=== PATIENT | female | born 1965 | race Caucasian/White ===

== ENCOUNTER 2021-11-09 13:46 | Emergency (ER) | payer OTHER ==
--- OUTSIDE RECORDS SUMMARY | 2021-11-09 13:49 | XMS REPORT | Continuity of Care Document ---
:1965 Author Organization [facility] t Address [address] [place] [address] Care Team Providers Name Role Phone MAGED MAHONEY Attending Clinician Unavailable OJ EDWARDS Attending Clinician Unavailable Sarita GAR Attending Clinician MAGED MAHONEY Admitting Clinician Unavailable OJ EDWARDS Admitting Clinician Unavailable Payers Payer Name Policy Type Policy Number Effective Date Expiration Date S ource GENERIC COMMERCIAL [id number] 2020 00:00:00 Problems Condition Condition Condition Status Onset Resolution Last Treating Co mments Source Name Details Category Date Date Treatment Clinician Date No known No known Disease [facility] active active [facility] problems problems of Medicin e Allergies, Adverse Reactions, Alerts Allergy Allergy Status Severity Reaction(s) Onset Inactive Treating Comm ents Source Name Type Date Date Clinician Levoflox Propensi Active Other (See Ba ylor acin ty to Comments) 10-29 College adverse 00:00: of reaction 00 Medicin s to e drug LEVOFLOX Allergy Active Med Other [facility] Ceftriax Propensi Active Anaphylaxis 2019-10 B aylor one ty to College adverse 00:00: of reaction 00 Medicin s to e drug Ciproflo Propensi Active Other (See 2019-10 [place] Ba y[facility] xacin ty to Comments) rupture Colleg e adverse 00:00: of reaction 00 Medicin s to e drug CEFTRIAX Allergy Active High Anaphylaxis 2019-[address] [facility] CIPROFLO Allergy Active Med Other 2019-[address] [facility] [address] [facility]ACIN [facility] NO KNOWN Allergy Active [facility] Social History Social Habit Start Date Stop Date Quantity Comments Source History [facility] Alcohol Std Drinks of Med icine History [facility] ge Alcohol Binge of Medicine Exposure to Not sure [facility] Yosef larry SARS-CoV-2 (event) of Med icine Alcohol intake 2021-03-12 2021-03-12 Lifetime [facility] Col lege 00:00:00 00:00:00 non-drinker of Medicine (finding) Tobacco use and 2020-12-28 2020-12-28 Never used [facility] Co llege exposure 00:00:00 00:00:00 of Medicine History [facility] 2020-12-28 2020-12-[address] [facility] ge Alcohol Frequency 00:00:00 00:00:00 of Medi cine Sex [birth year] [facility] llege 00:00:00 00:00:00 of Medicine Smoking Status Start Date Stop Date Source Never smoker [facility] o f Medicine Medications Ordered Filled Start Stop Current Ordering Indication Dosage Frequency Signature Comments Components Source Medication Medication Date Date Medication? Clinician (SIG) Name Name Lactobacill Yes Take by Iglesia delgado 03-12 mouth [facility] (ACIDOPHILU 08:10: daily. of S OR) 38 Medicin e nitrofurant Yes 100mg Take 1 Putnam abdias oin, 5-15 capsule by [facility] macrocrysta 00:00: mouth two o f l-monohydra 00 times Medicin te, daily. e (MACROBID) 100 MG capsule nitrofurant Yes 100mg Take 1 Putnam abdias oin 5-15 capsule by [facility] (MACRODANTI 00:00: mouth of N) 100 MG 00 nightly. Medici n capsule Start this e after your 2 weeks of twice a day macrobid. sodium 2020- Use as [facility] chloride 01-26 directed Colleg e 0.9 % 00:00: 00:00 for of injection 00 :00 reconstitu Medi melani tion of e medication . allopurinol Yes 300mg Take 1 Putnam abdias (ZYLOPRIM) 3-15 Tablet by [facility] 300 MG 00:00: mouth of tablet 00 daily. Medicin e chlorthalid Yes 25mg Take 1 Bayl or one 3-15 Tablet by [facility] (HYGROTEN) 00:00: mouth of 25 MG 00 daily. Medicin tablet e Potassium Yes 1{tbl} Take 1 Bayl or Citrate 10 3-15 Tablet by [facility]o ege MEQ (1080 00:00: mouth two of MG) TBCR 00 times Medicin daily. e losartan Yes 100mg Take 100 Bayl or (COZAAR) 8-28 mg by [facility] 100 MG 00:00: mouth of tablet 00 daily. Medicin e Immunizations Ordered Immunization Filled Immunization Date Status Commen ts Source Name Name Viri SARS-CoV-2 2021-01-12 Completed [facility] Vaccination 00:00:00 of Medicine Viri SARS-CoV-2 2020-12-14 Completed [facility] Vaccination 00:00:00 of Medicine Vital Signs Vital Name Observation Time Observation Value Comments Source HEIGHT 2020-11-09 10:00:00 170.2 cm WEIGHT 2020-11-09 10:00:00 128.459 kg HEIGHT 2020-10-29 13:51:00 170.2 cm WEIGHT 2020-10-29 13:51:00 122.018 kg HEIGHT 2020-10-14 23:00:00 170.2 cm WEIGHT 2020-10-14 23:00:00 122.018 kg HEIGHT 2020-11-09 10:00:00 170.2 cm WEIGHT 2020-11-09 10:00:00 128.459 kg HEIGHT 2020-10-29 13:51:00 170.2 cm WEIGHT 2020-10-29 13:51:00 122.018 kg Systolic blood 2021-03-12 13:07:00 143 mm[Hg] [facility] pressure Medicine Diastolic blood 2021-03-12 13:07:00 86 mm[Hg] [facility] pressure Medicine Heart rate 2021-03-12 13:07:00 74 /min [facility] Body temperature 2021-03-12 13:07:00 36.67 Fior [facility] Respiratory rate 2021-03-12 13:07:00 18 /min [facility] Body height 2021-03-12 13:07:00 167.6 cm [facility] Body weight 2021-03-12 13:07:00 127.733 kg [facility] BMI 2021-03-12 13:07:00 45.45 kg/m2 [facility] Oxygen saturation in 2021-03-12 13:07:00 98 /min [facility] Arterial blood by Medicine Pulse oximetry HEIGHT 2020-10-14 23:00:00 170.2 cm WEIGHT 2020-10-14 23:00:00 122.018 kg Procedures This patient has no known procedures. Plan of Care Planned Activity Planned Date Details Comments Source Future Scheduled 2021-03-12 Screening for malignant [facility] Test 12:13:34 neoplasm of colon of Medicin e (procedure) [code = 194110699] Future Scheduled 2021-03-12 Screening for malignant [facility] Test 12:13:34 neoplasm of breast of Medici ne (procedure) [code = 745264160] Future Scheduled 2021-03-12 BMI FOLLOW UP PLAN [facility] Test 12:13:34 [code = BMI FOLLOW UP of Med icine PLAN] Future Scheduled 2021-03-12 Hepatitis C screening [facility] Test 12:13:34 (procedure) [code = of Medic ine 768178577] Future Scheduled 2021-03-12 Human immunodeficiency B [facility] Test 12:13:34 virus screening of Medicine (procedure) [code = 757099280] Future Scheduled 2021-03-12 Screening for malignant [facility] Test 12:13:34 neoplasm of cervix of Medici ne (procedure) [code = 203838779] Future Scheduled 2021-03-12 ZOSTER VACCINE (1 of 2) [facility] Test 12:13:34 [code = ZOSTER VACCINE of Me dicine (1 of 2)] Future Scheduled 2021-03-12 FLU VACCINE > 6 MONTHS B [facility] Test 12:13:34 [code = FLU VACCINE > 6 of M edicine MONTHS] Future Scheduled 2021-03-12 TETANUS SHOT (ADULT) [facility] Test 12:13:34 [code = TETANUS SHOT of Medi cine (ADULT)] Future Scheduled 2021-03-12 URINALYSIS AUTO W/SCOPE 1 Occurrences [facility] Test 08:53:08 [code = 44143-7] starting of Medicine 03/12/2021 until 09/12/2021 Future Scheduled 2021-03-12 CULTURE, 1 Occurrences [facility] Col lege Test 08:53:08 URINE/SENSITIVITY ON starting of Medi cine ALL [code = 51009-9] 03/12/2021 until 09/12/2021 Encounters Start End Encounter Admission Attending Care Care Encounter Source Date/Time Date/Time Type Type Clinicians Facility Department ID 2021-07-23 Outpatient DENZEL [facility] Surgery [id number] [facility] 22:18:52 YAIMA 2021-07-23 Inpatient ER GRACE [facility] General Med [id number] [facility] 21:35:25 ISAIAH 2021-03-12 2021-03-12 Office GABRIEL Stein [id number] [facility] 07:34:52 08:34:52 Visit Opatti AMBULATOR [id number] College Y [id number] of [id number] [facility] melani 355 e 2020-10-29 2020-10-29 Outpatient [facility] [id number] [facility] 00:00:00 00:00:00 Results Test Description Test Time Test Comments Results Result Sour e Comments FL, FLUORO, 2020-11-09 Reason for NON-SPECIFIC, UP 14:10:00 exam:->right TO 1 HOUR retrograde; right [facility] - ureteroscopy; [facility] right stent TINA DUMONT placement : 1965 Sex: F *Fluoroscopic unit utilized for a procedure performed in the OR. No interpretation was requested. Refer to the operative report for findings. Refer to PACS for patient radiation dose information. PHOSPHORUS 2020-10-16 06:12:00 Test Item Value Reference Range Interpretation Comme nts PHOSPHORUS (BEAKER) (test code = 604) 3.0 mg/dL 2.3-4.7 Insurance Associate NIKKO DENG WBASIC METABOLIC [id number] 06:12:00 Test Item Value Reference Range Interpretation Comments SODIUM (BEAKER) 141 meq/L 136-145 (test code = 381) POTASSIUM (BEAKER) 4.2 meq/L 3.5-5.1 (test code = 379) CHLORIDE (BEAKER) 109 meq/L 98-107 H (test code = 382) CO2 (BEAKER) (test 24 meq/L 22-29 code = 355) BLOOD UREA NITROGEN 10 mg/dL 7-21 (BEAKER) (test code = 354) CREATININE (BEAKER) 0.77 mg/dL 0.57-1.25 (test code = 358) GLUCOSE RANDOM 130 mg/dL 70-105 H (BEAKER) (test code = 652) CALCIUM (BEAKER) 9.4 mg/dL 8.4-10.2 (test code = 697) EGFR (BEAKER) (test 78 mL/min/1.73 ESTIMA KEVIN GFR IS code = 1092) sq m NOT ACCURATE CREATININE CLEARANCE IN PREDICTING GLOMERULAR FILTRATION RATE . ESTIMATED GFR I S NOT APPLICABLE FOR DIALYSIS PATIEN TS. Insurance Associate NIKKO DENG [id number] 06:12:00 Test Item Value Reference Range Interpretation Comments MAGNESIUM (BEAKER) (test code = 2.0 mg/dL 1.6-2.6 627) Insurance Associate ID Jamie DENG WPOCT-GLUCOSE [id number] 06:06:00 Test Item Value Reference Range Interpretation Comments POC-GLUCOSE METER 126 mg/dL 70-110 H : TESTED A T [facility] 6720 (BEAKER) (test code = [place], 1538) [id number]: Insurance Associate/Techni ron ID = [id number] for URMILA MORALES CBC (HEMOGRAM ONLY)2020-10-16 05:42:00 Test Item Value Reference Range Interpretation Comments WHITE BLOOD CELL COUNT (BEAKER) 9.8 K/ L 3.5-10.5 (test code = 775) RED BLOOD CELL COUNT (BEAKER) 4.31 M/ L 3.93-5.22 (test code = 761) HEMOGLOBIN (BEAKER) (test code = 12.2 GM/DL 11.2-15.7 410) HEMATOCRIT (BEAKER) (test code = 37.9 % 34.1-44.9 411) MEAN CORPUSCULAR VOLUME (BEAKER) 87.9 fL 79.4-94.8 (test code = 753) MEAN CORPUSCULAR HEMOGLOBIN 28.3 pg 25.6-32.2 (BEAKER) (test code = 751) MEAN CORPUSCULAR HEMOGLOBIN CONC 32.2 GM/DL 32.2-35.5 (BEAKER) (test code = 752) RED CELL DISTRIBUTION WIDTH 13.1 % 11.7-14.4 (BEAKER) (test code = 412) PLATELET COUNT (BEAKER) (test 226 K/CU MM 150-450 code = 756) MEAN PLATELET VOLUME (BEAKER) 8.4 fL 9.4-12.3 L (test code = 754) NUCLEATED RED BLOOD CELLS 0 /100 WBC 0-0 (BEAKER) (test code = 413) CT, [id number] 04:34:00Unlisted Reason for Exam - Click Yes and Enter Reason Below->NoPlease specify:->[facility]al Stone [facility] 1965 Sex: FFINAL REPORT CLINICAL HISTORY: Flank pain FINDINGS: Multiple axial im ages of the abdomen and pelvis were performed without intravenous contrast. Oral contrast was not given. This exam was performed according to our departmental dose-optimization program, which includes automated exposure control, adjustment of the mA and/or kV according to patient size and/or use of the iterative reconstruction technique. Comparison:None. Lower chest: Bilateral dependent atelectasis. No pleural effusion or pneumothorax. Atherosclerotic coronary artery calcification. Liver: Hepatic steatosis Gallbladder and biliary tree: No significant findings. Spleen: Mild splenomegaly, measuring 14.2 cm in maximum axial dimension. Adrenal Glands: There is a mixed density left adrenal nodule including regions of macroscopic fat measuring 4.4 cm, probably a myelolipoma. No imaging follow-up for this finding is recommended. Kidneys and ureters: A right ureteral stent is appropriately positioned. There is no dilatation of the renal collecting systems. Bilateral nonobstructing kidney stones, the largest in the right midpole kidney measuring 6 mm. Stomach and Duodenum: No significant findings. Pancreas: No significant findings. Bowel: Colonic diverticulosis. No CT evidence of diverticulitis. No bowel obstruction or pneumatosis intestinalis. Appendix: Normal. Bladder: No significant findings. Major vascular structures: No significant findings. Reproductive organs: Previous hysterectomy Other: No f ree air, fluid or adenopathy Skeleton: No acute bony abnormality. IMPRESSION: Appropriately positioned right ureteral stent. There is no dilatation of the renal collecting system. Bilateral nonobstructing kidney stones. Hepatic steatosis. Mild splenomegaly. Colonic diverticulosis. Signed: Noe Smith MDReport Verified Date/Time: 10/16/2020 04:34:02 POCT-GLUCOSE [id number] 15:48:00 Test Item Value Reference Range Interpretation Comments POC-GLUCOSE METER 111 mg/dL 70-110 H : TESTED A T [facility] 6720 (BEAKER) (test code = [facility] Clemencia [employer], 1538) [id number]: Insurance Associate/Techni ron ID = [id number] for Celsa Delgadillo URINALYSIS W/ REFLEX URINE [id number] 08:36:00 Test Item Value Reference Range Interpretation Comments COLOR (BEAKER) (test code = 470) Brown CLARITY (BEAKER) (test code = 469) Clear SPECIFIC GRAVITY UA (BEAKER) (test 1.015 1.001-1.035 code = 468) PH UA (BEAKER) (test code = 467) 6.0 5.0-8.0 PROTEIN UA (BEAKER) (test code = Negative Negative 464) GLUCOSE UA (BEAKER) (test code = Negative Negative 365) KETONES UA (BEAKER) (test code = Negative Negative 371) BILIRUBIN UA (BEAKER) (test code = Positive Negative A 462) BLOOD UA (BEAKER) (test code = 461) Large Negative A NITRITE UA (BEAKER) (test code = Positive Negative A 465) LEUKOCYTE ESTERASE UA (BEAKER) Negative Negative (test code = 466) UROBILINOGEN UA (BEAKER) (test code 3.0 mg/dL 0.2-1.0 H = 463) RBC UA (BEAKER) (test code = 519) 182 /HPF WBC UA (BEAKER) (test code = 520) 16 /HPF SQUAMOUS EPITHELIAL (BEAKER) (test 16 /HPF code = 516) SOURCE(BEAKER) (test code = 2795) Insurance Associate ID - [auto]Insurance Associate ID - techHEMOGLOBIN [id number] 08:20:00 Test Item Value Reference Range Interpretation Comments HEMOGLOBIN A1C (BEAKER) (test code = 7.1 % 4.3-6.1 H 368) POCT-GLUCOSE [id number] 06:57:00 Test Item Value Reference Range Interpretation Comments POC-GLUCOSE METER 133 mg/dL 70-110 H : TESTED A T [facility] 6720 (BEAKER) (test code = [place], 1538) [id number]: Insurance Associate/Techni ron ID = [id number] for Ig we, Shyla FL, FLUORO, NON-SPECIFIC, UP TO 1 [id number] 06:57:00Reason for exam:- >cystoscopy for stent [facility] : 1965 Sex: FFluoroscopic unit utilized for a procedure performed in the OR. No interpretation was requested. Refer to the operative report for findings. Refer to PACS for patient radiation dose information.CBC (HEMOGRAM ONLY)2020-10-15 04:03:00 Test Item Value Reference Range Interpretation Comments WHITE BLOOD CELL COUNT (BEAKER) 11.8 K/ L 3.5-10.5 H (test code = 775) RED BLOOD CELL COUNT (BEAKER) 4.18 M/ L 3.93-5.22 (test code = 761) HEMOGLOBIN (BEAKER) (test code = 12.1 GM/DL 11.2-15.7 410) HEMATOCRIT (BEAKER) (test code = 36.0 % 34.1-44.9 411) MEAN CORPUSCULAR VOLUME (BEAKER) 86.1 fL 79.4-94.8 (test code = 753) MEAN CORPUSCULAR HEMOGLOBIN 28.9 pg 25.6-32.2 (BEAKER) (test code = 751) MEAN CORPUSCULAR HEMOGLOBIN CONC 33.6 GM/DL 32.2-35.5 (BEAKER) (test code = 752) RED CELL DISTRIBUTION WIDTH 12.8 % 11.7-14.4 (BEAKER) (test code = 412) PLATELET COUNT (BEAKER) (test 248 K/CU MM 150-450 code = 756) MEAN PLATELET VOLUME (BEAKER) 8.6 fL 9.4-12.3 L (test code = 754) NUCLEATED RED BLOOD CELLS 0 /100 WBC 0-0 (BEAKER) (test code = 413) SARS-COV2/RT-PCR ([facility])2020-10-15 03:22:00 Test Item Value Reference Range Interpretation Comments SARS-COV2/RT-PCR (test code Negative Not Detected, Negative, = [id number]) See external report for linked test SARS-COV-[address] [facility] (test code = 7428229) Negative results do not preclude SARS-CoV-2 infection and should not be used as the sole basis for patient management decisions. Negative results must be combined with clinical observations, patient history, and epidemiological information. A false negative result may occur if a specimen is improperly collected, transported or handled.The limit of detection for this assay is 250 copies/mL.This SARS CoV-2 test is a rapid, real-time RT-PCR test intended for the qualitative detection of nucleic acid from SARS-CoV-2 in a nasopharyngeal swab specimen collected from individuals suspected of COVID-19 by their healthcare provider.This test has not been Food and Drug Administration (FDA) cleared or approved and has been authorized by FDA under an Emergency Use Authorization (EUA). This EUA will be effective until the declaration that circumstances exist justifying the authorization of the emergency use of in vitro diagnostic tests for detection and/or diagnosis of COVID-19 is terminated under Section 564(b)(2) of the Act or the EUA is revoked under Section 564(g) of the Act.Fact Sheet for Healthcare Pro viders:https://www.Thinglink/Documents/Xpert%20Xpress%20SARS%20CoV-2/Fact%20Sh eets/302-3802%24SWWV-WPM-4%20HEALTHCARE%20PROVIDERS%20FACT%20SHEET.pdfFact Sheet for Healthcare Patients:https://www.MyoKardia/Documents/Xpert%20Xpress%20SARS%20CoV-2/Fact%20Sheets/302-3801%20SARS-COV -2%20PATIENT%20FACT%20SHEET.pdfPerforming Laboratory:[facility] [place], [place] [id number] W/ REFLEX URINE CULTURE 2020-10-15 01:25:00 Test Item Value Reference Range Interpretation Comments COLOR (BEAKER) (test code = 470) Yell CLARITY (BEAKER) (test code = 469) Cloudy SPECIFIC GRAVITY UA (BEAKER) (test 1.028 1.001-1.035 code = 468) PH UA (BEAKER) (test code = 467) 6.0 5.0-8.0 PROTEIN UA (BEAKER) (test code = 30 mg/dL Negative A 464) GLUCOSE UA (BEAKER) (test code = Negative Negative 365) KETONES UA (BEAKER) (test code = Negative Negative 371) BILIRUBIN UA (BEAKER) (test code = Positive Negative A 462) BLOOD UA (BEAKER) (test code = Moderate Negative A 461) NITRITE UA (BEAKER) (test code = Positive Negative A 465) LEUKOCYTE ESTERASE UA (BEAKER) Trace Negative A (test code = 466) UROBILINOGEN UA (BEAKER) (test 6.0 mg/dL 0.2-1.0 H code = 463) RBC UA (BEAKER) (test code = 519) 78 /HPF WBC UA (BEAKER) (test code = 520) 19 /HPF BACTERIA (BEAKER) (test code = Occasional 517) MUCUS (BEAKER) (test code = 1574) Rare SQUAMOUS EPITHELIAL (BEAKER) (test 4 /HPF code = 516) AMORPHOUS CRYSTALS (BEAKER) (test Many code = 1584) SOURCE(BEAKER) (test code = 2795) Insurance Associate ID - [auto]Insurance Associate ID - techPROTHROMBIN [id number] 23:42:00 Test Item Value Reference Range Interpretation Comments PROTIME (BEAKER) (test code = 12.6 seconds 11.9-14.2 759) INR (BEAKER) (test code = 370) 0.97 <=5.90 Effective 03/13/2019: PT Reference Range ChangeNew: 11.9-14.2 Previous: 11.7- 14.7RECOMMENDED COUMADIN/WARFARIN INR THERAPY RANGESSTANDARD DOSE: 2.0-3.0 Includes: PROPHYLAXIS for venous thrombosis, systemic embolization; TREATMENT for venous thrombosis and/or pulmonary embolus.HIGH RISK: Target INR is2.5-3.5 for patients wiht mechanical heart valves.COMPREHENSIVE METABOLIC PANEL 2020-10-14 23:30:00 Test Item Value Reference Range Interpretation Comments TOTAL PROTEIN 7.3 gm/dL 6.0-8.3 (BEAKER) (test code = 770) ALBUMIN (BEAKER) 4.1 g/dL 3.5-5.0 (test code = 1145) ALKALINE PHOSPHATASE 90 U/L 40-150 (BEAKER) (test code = 346) BILIRUBIN TOTAL 0.5 mg/dL 0.2-1.2 (BEAKER) (test code = 377) SODIUM (BEAKER) (test 135 meq/L 136-145 L code = 381) POTASSIUM (BEAKER) 4.3 meq/L 3.5-5.1 (test code = 379) CHLORIDE (BEAKER) 106 meq/L 98-107 (test code = 382) CO2 (BEAKER) (test 22 meq/L 22-29 code = 355) BLOOD UREA NITROGEN 14 mg/dL 7-21 (BEAKER) (test code = 354) CREATININE (BEAKER) 1.03 mg/dL 0.57-1.25 (test code = 358) GLUCOSE RANDOM 180 mg/dL 70-105 H (BEAKER) (test code = 652) CALCIUM (BEAKER) 9.0 mg/dL 8.4-10.2 (test code = 697) AST (SGOT) (BEAKER) 23 U/L 5-34 (test code = 353) ALT (SGPT) (BEAKER) 30 U/L 6-55 (test code = 347) EGFR (BEAKER) (test 55 mL/min/1.73 ESTIMA KEVIN GFR IS code = 1092) sq m NOT ACCURATE CREATININE CLEARANCE IN PREDICTING GLOMERULAR FILTRATION RATE . ESTIMATED GFR I S NOT APPLICABLE FOR DIALYSIS PATIEN TS. Insurance Associate ID - JJ [id number] 23:30:00 Test Item Value Reference Range Interpretation Comments MAGNESIUM (BEAKER) (test code = 2.7 mg/dL 1.6-2.6 H 627) Insurance Associate ID - JJ [id number] 23:30:00 Test Item Value Reference Range Interpretation Comments PHOSPHORUS (BEAKER) (test code = 3.5 mg/dL 2.3-4.7 604) Insurance Associate ID - JJ LCBC W/PLT COUNT & AUTO [id number] 23:10:00 Test Item Value Reference Range Interpretation Comments WHITE BLOOD CELL COUNT (BEAKER) 13.8 K/ L 3.5-10.5 H (test code = 775) RED BLOOD CELL COUNT (BEAKER) 4.49 M/ L 3.93-5.22 (test code = 761) HEMOGLOBIN (BEAKER) (test code = 13.0 GM/DL 11.2-15.7 410) HEMATOCRIT (BEAKER) (test code = 38.5 % 34.1-44.9 411) MEAN CORPUSCULAR VOLUME (BEAKER) 85.7 fL 79.4-94.8 (test code = 753) MEAN CORPUSCULAR HEMOGLOBIN 29.0 pg 25.6-32.2 (BEAKER) (test code = 751) MEAN CORPUSCULAR HEMOGLOBIN CONC 33.8 GM/DL 32.2-35.5 (BEAKER) (test code = 752) RED CELL DISTRIBUTION WIDTH 12.8 % 11.7-14.4 (BEAKER) (test code = 412) PLATELET COUNT (BEAKER) (test 256 K/CU MM 150-450 code = 756) MEAN PLATELET VOLUME (BEAKER) 8.2 fL 9.4-12.3 L (test code = 754) NUCLEATED RED BLOOD CELLS 0 /100 WBC 0-0 (BEAKER) (test code = 413) NEUTROPHILS RELATIVE PERCENT 80 % (BEAKER) (test code = 429) LYMPHOCYTES RELATIVE PERCENT 16 % (BEAKER) (test code = 430) MONOCYTES RELATIVE PERCENT 4 % (BEAKER) (test code = 431) EOSINOPHILS RELATIVE PERCENT 0 % (BEAKER) (test code = 432) BASOPHILS RELATIVE PERCENT 0 % (BEAKER) (test code = 437) NEUTROPHILS ABSOLUTE COUNT 11.05 K/ L 1.56-6.13 H (BEAKER) (test code = 670) LYMPHOCYTES ABSOLUTE COUNT 2.14 K/ L 1.18-3.74 (BEAKER) (test code = 414) MONOCYTES ABSOLUTE COUNT (BEAKER) 0.50 K/ L 0.24-0.36 H (test code = 415) EOSINOPHILS ABSOLUTE COUNT 0.03 K/ L 0.04-0.36 L (BEAKER) (test code = 416) BASOPHILS ABSOLUTE COUNT (BEAKER) 0.02 K/ L 0.01-0.08 (test code = 417) IMMATURE GRANULOCYTES-RELATIVE 1 % 0-1 PERCENT (BEAKER) (test code = 6297)
[2021-11-09] MEDS ORDERED: KETOROLAC 30 MG/ML INJ ONE (14:30)
[2021-11-09 14:33] LABS: Absolute Lymphocytes (CBC) 1.8 K/uL (0.7-4.9); Hematocrit 41.2 % (36.0-45.0); Lymphocytes % 13.2 % (15.3-44.8); MPV 6.5 fL (7.6-11.3); RBC Red Blood Cell Count 4.85 M/uL (3.86-4.86)
--- NOTE | 2021-11-09 14:45 | RAD REPORT ---
EXAM DESCRIPTION: CT - Abdomen Pelvis Wo Contrast - 11/09/2021 2:32 pm CLINICAL HISTORY: Abdominal pain. KIDNEY STONES COMPARISON: No comparisons TECHNIQUE: CT imaging of the abdomen and pelvis was performed without contrast. Solid organ, bowel a nd vascular assessment is limited due to lack of IV and oral contrast. All CT scans are performed using dose optimization technique as appropriate and may include automated exposure control or mA/KV adjustment according to patient size. FINDINGS: The lower lung golden are clear. Diffuse fatty liver is present. The spleen, pancreas and right adrenal gland are normal.4.2 cm left a drenal mass is present with macroscopic visible fat most likely a myelolipoma. Bilateral calculi are present in both kidneys. There is a 6 mm stone proximal left kidney resulting i n moderate left hydronephrosis. No bowel obstruction, free air, free fluid or abscess. Sigmoid diverticulosis coli is present without diverticulitis. The appendix is normal. Small fat containing umbilical hernia. Moderate lumbosacral degenerative changes. IMPRESSION: 6 mm stone is present proximal left ureter resulting in mild to moderate left hydronephr osis. Additional bilateral nephrolithiasis is present. A limited non-contrast examination was performed as detailed.
[2021-11-09 14:49] LABS: Urine Blood 3+ (Negative); Urine Glucose 3+ (Negative); Urine Protein Negative (Negative); Urine Specific Gravity 1.025 (1.005-1.030); Urine pH 6.5 (5.0-7.0)
[2021-11-09 14:56] LABS: Albumin 3.3 g/dL (3.4-5.0); Bilirubin Direct 0.1 mg/dL (0-0.2); Potassium 3.6 mmol/L (3.5-5.1); Protein, Total 7.3 g/dL (6.4-8.2)
[2021-11-09 14:57] LABS: Bilirubin Total 0.4 mg/dL (0.2-1.0)
[2021-11-09 15:31] LABS: Blood Morphology Comment NOT SEEN (NOT SEEN); Platelet Estimate ADEQ; White Blood Cell Scan OK (OK)
--- NOTE | 2021-11-09 15:43 | ER ---
Nurse's Notes [facility] Name: Shannon Grace Age: 56 yrs Sex: Female : 1965 Arrival Date: 11/09/2021 Time: 13:48 Bed 23 Private MD: Mekhi Olmedo; Bhavesh Smith Diagnosis: Ureterolithiasis left ureter, UTI Presentation: 11/09 14:00 Chief complaint: Patient states: left flank pain since 1 am, hx of kidney stones and iw stents, also has cloudy urine but pt is colonized with ESBL and is on maintenance dose of nitrofurantoin , + nausea. Coronavirus screen: At this time, the client does not indicate any symptoms associated with coronavirus-19. Ebola Screen: Patient negative for fever greater than or equal to 101.5 degrees Fahrenheit, and additional compatible Ebola Virus Disease symptoms Patient denies exposure to infectious person. Patient denies travel to an Ebola-affected area in the 21 days before illness onset. No symptoms or risks identified at this time. Initial Sepsis Screen: Does the patient meet any 2 criteria? No. Patient's initial sepsis screen is negative. Does the patient have a suspected source of infection? No. Patient's initial sepsis screen is negative. Risk Assessment: Do you want to hurt yourself or someone else? Patient reports no desire to harm self or others. Onset of symptoms was November 09, 2021. 14:00 Method Of Arrival: Ambulatory iw 14:00 Acuity: ANGELIKA 3 iw Historical: - Allergies: 14:03 Rocephin; iw 14:03 fluoroquinolones; iw 14:03 Aspirin; iw - Home Meds: 14:08 losartan 100 mg oral tab 1 tab once daily [Active]; nitrofurantoin macrocrystal 100 mg iw Oral cap twice a day [Active]; chlorthalidone 25 mg Oral tab 1 tab once daily [Active]; - PMHx: 14:08 Hypertensive disorder; Kidney stone; iw - PSHx: 14:03 kidney stents; iw 14:08 hysterectomy; iw - Immunization history:: Client reports receiving the Dion \T\ Dion single-dose vaccine. - Social history:: Smoking status: Patient/guardian denies using tobacco, but has a distant history of tobacco abuse. Screenin:32 Abuse screen: Denies threats or abuse. Denies injuries from another. Nutritional cb5 screening: No deficits noted. Tuberculosis screening: No symptoms or risk factors identified. Fall Risk None identified. Assessment: 14:07 General: Appears Behavior is cooperative, appropriate for age. Pain: Complains of pain cb5 in back Pain currently is 5 out of 10 on a pain scale. Neuro: No deficits noted. Level of Consciousness is awake, alert, obeys commands, Oriented to person, place, time, situation, Appropriate for age. Cardiovascular: No deficits noted. Respiratory: No deficits noted. GI: Bowel sounds present X 4 quads. : No deficits noted. EENT: No deficits noted. Derm: No deficits noted. Musculoskeletal: No deficits noted. 14:32 GI: Abd is soft X 4 quads. cb5 15:15 Reassessment: pt states the toradol helped her pain Patient states feeling better. cb5 16:27 Reassessment: Patient states feeling better. cb5 Vital Signs: 14:00 BP 176 / 69; Pulse 96; Resp 18; Temp 98.2; Pulse Ox 99% on R/A; Weight 127.91 kg; iw Height 5 ft. 7 in. (170.18 cm); Pain 8/10; 16:10 BP 155 / 78; Pulse 78; Resp 16; Temp 98.6; Pulse Ox 98% ; Pain 0/10; cb5 14:00 Body Mass Index 44.17 (127.91 kg, 170.18 cm) iw ED Course: 13:48 Patient arrived in ED. as 13:48 Mekhi Olmedo MD is Private Physician. as 13:48 Bhavesh Smith MD is Private Physician. as 13:50 Sandra Begum MD is Attending Physician. sp3 14:03 Triage completed. iw 14:06 Hailey Narayan, YAHIR is Primary Nurse. cb5 14:10 Arm band placed on. iw 14:24 Basic Metabolic Panel Sent. cb5 14:24 CBC with Diff Sent. cb5 14:25 Hepatic Function Sent. cb5 14:25 Lipase Sent. cb5 14:32 Patient has correct armband on for positive identification. Bed in low position. Call cb5 light in reach. 14:33 CT Abd/Pelvis - Without Contrast In Process Unspecified. EDMS Administered Medications: 14:43 Drug: Ketorolac 30 mg Route: IVP; Site: left antecubital; cb5 15:58 Drug: Cefepime 2 grams Route: IVPB; Rate: 200 ml/hr; Infused Over: 30 mins; Site: left cb5 antecubital; Outcome: 15:42 Discharge ordered by . giovany 16:28 Discharged to home ambulatory. cb5 16:28 Condition: stable 16:28 Discharge instructions given to family. 16:34 Patient left the ED. cb5 Signatures: Dispatcher [employer] Rosario Pavon Irene, YAHIR RN Sandra Farah MD MD sp3 Hailey Narayan RN RN cb5
--- NOTE | 2021-11-09 15:43 | EDPHYS ---
Physician Documentation [facility] Name: Shannon Grace Age: 56 yrs Sex: Female : 1965 Arrival Date: 11/09/2021 Time: 13:48 Bed 23 Private MD: Mekhi Olmedo; Bhavesh Smith ED Physician Sandra Begum HPI: 11/09 14:13 This 56 yrs old Female presents to ER via Ambulatory with complaints of Possible Kidney sp3 Stone. 14:13 56-year-old female with a history of multiple kidney stones, hypertension now presents sp3 with chief complaint left flank pain and "I feel like I have another kidney stone". Patient also states that she has had mildly cloudy urine and has had UTI with colonization in the past. She has had multiple ureteral stents with stone retrieval and hysterectomy as well. Patient states her pain has been going on for 2 to 3 days. Patient denies headache, neck pain, upper back pain, chest pain, shortness of breath, neuro symptoms, rash, syncope, fever, any other ROS at this time. Patient does report mild nausea with one episode of vomiting yesterday.. Historical: - Allergies: 14:03 Rocephin; iw 14:03 fluoroquinolones; iw 14:03 Aspirin; iw - Home Meds: 14:08 losartan 100 mg oral tab 1 tab once daily [Active]; nitrofurantoin macrocrystal 100 mg iw Oral cap twice a day [Active]; chlorthalidone 25 mg Oral tab 1 tab once daily [Active]; - PMHx: 14:08 Hypertensive disorder; Kidney stone; iw - PSHx: 14:03 kidney stents; iw 14:08 hysterectomy; iw - Immunization history:: Client reports receiving the Dion \\T\\ Dion single-dose vaccine. - Social history:: Smoking status: Patient/guardian denies using tobacco, but has a distant history of tobacco abuse. ROS: 14:14 Constitutional: Negative for fever, chills, and weight loss, Eyes: Negative for injury, sp3 pain, redness, and discharge, ENT: Negative for injury, pain, and discharge, Neck: Negative for injury, pain, and swelling, Cardiovascular: Negative for chest pain, palpitations, and edema, Respiratory: Negative for shortness of breath, cough, wheezing, and pleuritic chest pain, MS/Extremity: Negative for injury and deformity, Skin: Negative for injury, rash, and discoloration, Neuro: Negative for headache, weakness, numbness, tingling, and seizure, Psych: Negative for depression, anxiety, suicide ideation, homicidal ideation, and hallucinations, Allergy/Immunology: Negative for hives, rash, and allergies, Endocrine: Negative for neck swelling, polydipsia, polyuria, polyphagia, and marked weight changes. 14:14 All other systems are negative. Exam: 14:14 Constitutional: This is a well developed, well nourished patient who is awake, alert, sp3 and in no acute distress. Head/Face: Normocephalic, atraumatic. Eyes: Pupils equal round and reactive to light, extra-ocular motions intact. Lids and lashes normal. Conjunctiva and sclera are non-icteric and not injected. Cornea within normal limits. Periorbital areas with no swelling, redness, or edema. Chest/axilla: Normal chest wall appearance and motion. Nontender with no deformity. No lesions are appreciated. Cardiovascular: Regular rate and rhythm with a normal S1 and S2. No gallops, murmurs, or rubs. Normal PMI, no JVD. No pulse deficits. Respiratory: Lungs have equal breath sounds bilaterally, clear to auscultation and percussion. No rales, rhonchi or wheezes noted. No increased work of breathing, no retractions or nasal flaring. Skin: Warm, dry with normal turgor. Normal color with no rashes, no lesions, and no evidence of cellulitis. MS/ Extremity: Pulses equal, no cyanosis. Neurovascular intact. Full, normal range of motion. Neuro: Awake and alert, GCS 15, oriented to person, place, time, and situation. Cranial nerves II-XII grossly intact. Motor strength 5/5 in all extremities. Sensory grossly intact. Cerebellar exam normal. Normal gait. Psych: Awake, alert, with orientation to person, place and time. Behavior, mood, and affect are within normal limits. 14:14 Abdomen/GI: Left-sided abdominal tenderness with left flank pain and positive CVA tenderness.. Vital Signs: 14:00 BP 176 / 69; Pulse 96; Resp 18; Temp 98.2; Pulse Ox 99% on R/A; Weight 127.91 kg; iw Height 5 ft. 7 in. (170.18 cm); Pain 8/10; 16:10 BP 155 / 78; Pulse 78; Resp 16; Temp 98.6; Pulse Ox 98% ; Pain 0/10; cb5 14:00 Body Mass Index 44.17 (127.91 kg, 170.18 cm) iw MDM: 14:11 Patient medically screened. sp3 14:14 Data reviewed: vital signs, nurses notes. ED course: 56-year-old female with likely sp3 left-sided kidney stone with multiple prior episodes. Will obtain CT scan of the abdomen pelvis noncontrast, laboratory values, urinalysis, administer ketorolac IV since that is worked for her in the past. Disposition based on work-up findings and size of kidney stone. Other differential diagnosis includes pyelonephritis, UTI, and to a much lower probability vascular compromise including AAA, intestinal obstruction, colitis, and functional abdominal pain.. 15:40 ED course: CT demonstrates 6 mm kidney stone in the proximal left ureter with mild to sp3 moderate hydronephrosis. WBC count is mildly elevated and urine is positive for leukocyte esterase. I am highly concerned for overlying infection associated with this kidney stone. I extensively talked to the patient on being admitted versus following up with the urologist she states that she should be able to get into her urologist previously given her history and relationship. Therefore I will administer cefepime 2 g IV and discharge patient on Bactrim p.o. both of which she has been able to tolerate given her allergies. NSAID diclofenac for pain control patient knows to come back here if she is unable to get into her urologist or she deteriorates, spikes a fever, or has any other concerns. Joint decision-making is complete and I will discharge patient home at this time.. 11/09 14:10 Order name: Basic Metabolic Panel; Complete Time: 15: sp3 11/09 14:10 Order name: CBC with Diff sp3 11/09 14:10 Order name: Hepatic Function; Complete Time: 15:29 sp3 11/09 14:10 Order name: Lipase; Complete Time: 15: sp3 11/09 14:49 Order name: Urine Dipstick-Ancillary; Complete Time: 15:29 EDMS 11/09 15:31 Order name: CBC Smear Scan EDVA 11/09 14:10 Order name: IV Saline Lock; Complete Time: 14:24 sp3 11/09 14:10 Order name: Labs collected and sent; Complete Time: 14:24 sp3 11/09 14:10 Order name: Urine Dipstick-Ancillary (obtain specimen); Complete Time: 14:43 sp3 11/09 14:11 Order name: CT Abd/Pelvis - Without Contrast; Complete Time: 15:29 sp3 Administered Medications: 14:43 Drug: Ketorolac 30 mg Route: IVP; Site: left antecubital; cb5 15:58 Drug: Cefepime 2 grams Route: IVPB; Rate: 200 ml/hr; Infused Over: 30 mins; Site: left cb5 antecubital; Disposition Summary: 11/09/21 15:42 Discharge Ordered Location: Home sp3 Condition: Stable sp3 Diagnosis - Ureterolithiasis left ureter, UTI sp3 Followup: sp3 - With: Private Physician - When: Upon discharge from the Emergency Department - Reason: Recheck today's complaints Discharge Instructions: - Discharge Summary Sheet sp3 - Kidney Stones sp3 - Urinary Tract Infection, Adult sp3 Forms: - Medication Reconciliation Form sp3 - Thank You Letter sp3 - Antibiotic Education sp3 - Prescription Opioid Use sp3 Prescriptions: - Diclofenac Sodium 75 mg Oral Tablet Sustained Release - take 1 tablet by ORAL route 2 times per day; 30 tablet; Refills: 0, Product sp3 Selection Permitted - Bactrim DS 800-160 mg Oral Tablet - take 1 tablet by ORAL route every 12 hours for 10 days; 20 tablet; Refills: 0, sp3 Product Selection Permitted Signatures: Dispatcher [employer] Nicolasa Goldberg, RN RN iw Sandra Begum MD MD sp3 Hailey Narayan RN RN cb5
[2021-11-09] MEDS ORDERED: NA CHLORIDE 0.9% 250 ML ONE (15:54)
[2021-11-09] MEDS ORDERED: CEFEPIME 1 GM/VIAL ONE (15:55)
[2021-11-09 16:40] VITALS: BP 155/78; TEMP 98.6; O2SAT 98
== END 2021-11-09 16:34 | disposition home or self-care (01) ==
LOC: ER 13:46
DX: N20.1 Calculus of ureter (principal); N39.0 Urinary tract infection, site not specified; Z87.442 Personal history of urinary calculi; I10 Essential (primary) hypertension; Z88.3 Allergy status to other anti-infective agents; Z88.5 Allergy status to narcotic agent; Z88.6 Allergy status to analgesic agent
CPT/HCPCS: 85025; 80048; 36415; 80076; 81003; 83690; 74176; J7050; J0692; 96374; 96375; 99283